=== PATIENT | male | born 1940 | race Caucasian/White ===

== ENCOUNTER 2022-04-29 08:18 | Outpatient (CLI) | payer MEDICARE, SELFPAY ==
[2022-04-29 10:32] LABS: Albumin* 4.1 g/dL (3.3-5.0); Chloride* 103 mmol/L (96-114); Potassium* 4.7 mmol/L (3.6-5.1); Sodium* 138 mmol/L (135-149)
[2022-04-29 10:34] LABS: Carbon Dioxide* 29 mmol/L (20-32); Cholesterol* 153 mg/dL (90-199); Creatinine* 0.9 mg/dL (0.5-1.5); Estimated Glomerular Filt Rate 87 ml/min
[2022-04-29 10:35] LABS: Alanine Aminotransferase* 27 U/L (4-50); Alkaline Phosphatase* 52 U/L (40-150); Aspartate Amino Transferase* 34 U/L (12-35); Bilirubin Total* 1.1 mg/dL (0.1-1.5); Blood Urea Nitrogen* 23 mg/dL (7-30); Calcium* 8.8 mg/dL (8.4-10.6); Glucose* 88 mg/dL (60-115); Total Protein* 6.9 g/dL (6.0-8.3); Triglycerides* 141 mg/dL (40-149)
[2022-04-29 10:36] LABS: HDL Cholesterol* 40 mg/dL (>=40); LDL Cholesterol Calculated 85 mg/dL (<100)
== END 2022-04-29 08:19 | disposition home or self-care (01) ==
PROVIDERS: PCP Family Medicine; Visit Provider Family Medicine
DX: E78.5 Hyperlipidemia, unspecified (principal)
CPT/HCPCS: 80053; 80061

== ENCOUNTER 2023-04-13 08:08 | Outpatient (CLI) | payer MEDICARE, SELFPAY | END 2023-04-13 08:09 | disposition home or self-care (01) | LOC: NFLDREF 04-16 20:17 | PROVIDERS: PCP Family Medicine; Referring Provider Family Medicine; Visit Provider Family Medicine | DX: E78.5 Hyperlipidemia, unspecified (principal) | CPT/HCPCS: 80053; 80061 ==

== ENCOUNTER 2023-05-06 11:31 | Emergency (ER) | payer MEDICARE, SELFPAY ==
[2023-05-06 11:42] VITALS: BP 160/83; PULSE 55; RESP 16; TEMP 36.8; O2SAT 98; BMI 26.6
--- NOTE | 2023-05-06 12:18 | ED_ITS ---
HPI - General Adult General Time Seen by Provider: 12:19 Date Seen: 05/06/23 Chief complaint: Dizziness/Vertigo Stated complaint: vomiting, possible vertigo Time Seen by Provider: 05/06/23 12:17 Source: patient Mode of arrival: wheelchair History of Present Illness HPI narrative: James is an 82-year-old male past medical history includes macular degeneration, hyperlipidemia, presents emerged department via private car in wheelchair with dizziness/vertigo. Patient states he had symptoms yesterday for short period of time, he had dinner around 8:30 p.m., when he got up he had a sensation of the room spinning, he had to sit in a recliner. Symptoms improved when he was laying still. He ended up going to bed last night, he got up to go the bathroom he had symptoms of the room spinning specially with ambulation. Symptoms seemed to resolve once he is laying. Got up this morning was ambulating to the bathroom and again he had symptoms of room spinning, he was very nauseous and vomited 3 times. ended up bringing him in. Denies any headache, chest pain or shortness of breath, patient has no history of CAD or stroke, no fevers, but he does have chronic nasal congestion. Patient was admitted about 5 years ago for similar symptoms, they thought at that time more related to heat stroke. Patient at this time has no symptoms when laying down. Denies any focal weakness or paresthesias. No other concerns at this time. Related Data Home Medications Medication Instructions Recorded Confirmed Focus PO 04/29/22 05/12/23 meclizine 25 mg tablet 25 mg PO TID PRN 05/12/23 Previous Rx's Medication Instructions Recorded rosuvastatin 5 mg tablet 5 mg PO QDAY #90 tabs 05/12/23 Allergies Allergy/AdvReac Type Severity Reaction Status Date / Time azithromycin AdvReac Mild Diarrhea, Verified 05/12/23 09:36 gas, bloating Anesthetics, Amide Allergy Unknown Uncoded 05/12/23 09:36 Anesthetics, Lacey Allergy Unknown Uncoded 05/12/23 09:36 Anesthetics, Halogenated Allergy Unknown Uncoded 05/12/23 09:36 Review of Systems Status of ROS: Reports: 10 or more systems reviewed and unremarkable except as noted in History and below [facility] Medical History 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) Surgical History History of cataract surgery ?Z98.49 - Cataract extraction status, unspecified eye (ICD-10) History of colonoscopy ?Z98.890 - Other specified postprocedural states (ICD-10) History of surgery on arm ?Z98.890 - Other specified postprocedural states (ICD-10) Social History (Updated 05/12/23 @ 14:55 by Shirley Cline ~ CT[facility]) What is your current living situation?: I presently have a place to live In the past 12 months, utilities in danger of being shut off: no In past 12 months, lack of transportation kept you from medical appts, meetings, work, or getting things needed for daily living: no In the past 12 mos, have been you worried that your food would run out before yo u had money to buy more?: never true In the past 12 mos, the food you bought just didn't last and you didn't have money to buy more?: never true Smoking Status: Never smoker How often does anyone, including family, friends and others, physically hurt you : never How often does anyone, including family, friends and others, insult or talk down to you: never How often does anyone, including family, friends and others, threaten you with harm: never How often does anyone, including family, friends and others, scream or curse at you: never Little interest or pleasure in doing things: not at all Feeling down, depressed, or hopeless: not at all Exam Narrative: Exam Narrative: General: No obvious distress laying comfortably, nontoxic in appearance HEENT: Tympanic membranes within normal limits bilaterally, oropharynx is clear moist, nares are clear, pupils equal round reactive to light, extraocular muscles intact Lungs: Clear to auscultation bilaterally Heart; normal sinus rhythm S1-S2 Muscle skeletal: +5 strength in upper and lower extremities Neuro: Alert awake and oriented x3, unable to perform Ivette-Hallpike, once patient sits up he developed symptoms, no noticeable nystagmus. Unable to evaluate gait Const: Vital Signs, click to edit/add: Vital Signs - 24 hr 05/06/23 11:42 Temperature 98.3 F Pulse Rate [Right Pulse Oximeter] 55 L Respiratory Rate 16 Blood Pressure [Ri ght Upper Arm] 160/83 H Pulse Oximetry 98 Oxygen Delivery Me thod Room Air Course Course ED Course: 12:15 PM: AIDET performed. Workup will include EKG, ED point of care troponin, TSH, CBC and CMP, will give patient meclizine 25 mg, Scopolamine patch, seems more related to a positional vertigo since patient's symptoms occur with head movement and ambulation, may consider further imaging if no improvement with his symptoms. Differential diagnosis include but not limited to CVA, BPPV, hypo or hyperthyroidism, cardiac arrhythmia, anemia, medication side effects, acute stick neuroma, ruptured tympanic membrane, otitis media, encephalopathy, temporal lobe epilepsy, electrolyte abnormalities, infection, labyrinthitis as well as all etiologies. Reevaluation(s) Time of Reevaluation #1: 14:27 Reevaluation #1: EKG showed sinus bradycardia, bpm 55, no ectopy or acute ST changes, no comparisons, per ED per. CBC showed no leukocytosis, no anemia, metabolic panel within normal limits, point of care troponin negative, patient was given the above care and his symptoms improved, was able to perform Ivette-Hallpike, which elicit no vertical or horizontal nystagmus, patient had no symptoms, he is ambulating to and from the bathroom with no symptoms, will continue to monitor, likely discharge home with prescription for meclizine. Reevaluation #2: Symptoms have improved, will plan to discharge, prescription for meclizine sent to his pharmacy, he should follow up primary care provider over the next 7-10 days reasons to return were given Vital Signs Vital signs: Initial Vital Signs Temperature 98.3 F 05/06/23 11:42 Temperature Source Temporal Artery Scan 05/06/23 11:42 Pulse Rate 55 L 05/06/23 11:42 Pulse Rhythm Regular 05/06/23 11:42 Pulse Strength 3+ Normal 05/06/23 11:42 Respiratory Rate 16 05/06/23 11:42 Blood Pressure 160/83 H 05/06/23 11:42 Blood Pressure Mean 108 H 05/06/23 11:42 Blood Pressure Position Sitting 05/06/23 11:42 Pulse Oximetry 98 05/06/23 11:42 Oxygen Delivery Method Room Air 05/06/23 11:42 Vital Signs Temperature 98.3 F 05/06/23 11:42 Pulse Rate 55 L 05/06/23 11:42 Respiratory Rate 16 05/06/23 11:42 Blood Pressure 160/83 H 05/06/23 11:42 Pulse Oximetry 98 05/06/23 11:42 Oxygen Delivery Method Room Air 05/06/23 11:42 Temperature 98.3 F 05/06/23 11:42 Pulse Rate 55 L 05/06/23 14:19 Respiratory Rate 16 05/06/23 11:42 Blood Pressure 160/83 H 05/06/23 11:42 Pulse Oximetry 94 05/06/23 14:19 Oxygen Delivery Method Room Air 05/06/23 11:42 Medical Decision Making Lab Data Labs: Lab Results 05/06/23 Range/Units 12:50 WBC 7.38 (4.50-11.00) K/uL RBC 5.14 (4.30-5.90) m/uL Hgb 15.3 (13.5-17.5) gm/dL Hct 45.5 (37.0-53.0) % MCV 89 (80-100) fL MCH 30 (26-34) pg MCHC 34 (32-36) gm/dL RDW Coeff of Sugey 12.4 (11.5-15.5) % Plt Count 177 (140-440) K/uL Neut % (Auto) 82.9 H (42.0-72.0) % Lymph % (Auto) 8.9 L (20-44) % Hopkins % (Auto) 6.6 (0.0-11.0) % Eos % (Auto) 0.9 (0.0-7.0) % Baso % (Auto) 0.3 (0.0-3.0) % Neut # (Auto) 6.10 (1.7-7.0) K/uL Lymph # (Auto) 0.70 L (0.90-2.90) K/uL Hopkins # (Auto) 0.50 (0.00-0.90) K/UL Eos # (Auto) 0.07 (0.00-0.50) K/uL Baso # (Auto) 0.02 (0.00-0.30) K/uL Abs Immat Gran (auto) 0.03 (0.00-0.30) K/uL Imm/Tot Granulo (auto) 0.4 % Sodium 134 L (135-149) mmol/L Potassium 4.2 (3.6-5.1) mmol/L Chloride 102 (96-114) mmol/L Carbon Dioxide 28 (20-32) mmol/L Anion Gap 4 L (7-15) mEq/L BUN 17 (7-30) mg/dL Creatinine 0.8 (0.5-1.5) mg/dL Estimated Creat Clear 55.08 Estimated GFR 89 ml/min Glucose 114 (60-115) mg/dL Calcium 9.2 (8.4-10.6) mg/dL Total Bilirubin 1.0 (0.1-1.5) mg/dL AST 32 (12-35) U/L ALT 27 (4-50) U/L Alkaline Phosphatase 49 (40-150) U/L Troponin I < 0.01 L (0.01-0.04) ng/mL Total Protein 7.0 (6.0-8.3) g/dL Albumin 4.0 (3.3-5.0) g/dL TSH 2.660 (0.270-4.20) uIU/mL Discharge Plan Discharge Clinical Impression: Dizziness Patient Disposition: Home, Self-Care Condition: Improved Instructions: Vertigo (ED), Dizziness (ED) Additional Instructions: To leave the scopolamine patch on, for the next 3 days, meclizine 25 mg as needed 3 times daily if dizziness return, continue to hydrate, follow up with primary care provider over the next 7-10 days. Return if worsening symptoms. Activity Level: No Restrictions Prescriptions: No Action Focus PO meclizine 25 mg tablet 25 mg PO TID PRN rosuvastatin 5 mg tablet 5 mg PO QDAY Qty: 90 3RF Follow Up/Referrals: Dustin Cruz MD [Primary Care Provider] - Stand Alone Forms: [employer] Info Instructions
[2023-05-06] MEDS: MECLIZINE HCL 25 MG TABLET PO (12:49)
[2023-05-06 12:58] LABS: Basophils Absolute Auto 0.02 K/uL (0.00-0.30); Basophils Percent Auto 0.3 % (0.0-3.0); Eosinophils Absolute Auto 0.07 K/uL (0.00-0.50); Eosinophils Percent Auto 0.9 % (0.0-7.0); Hematocrit 45.5 % (37.0-53.0); Hemoglobin* 15.3 gm/dL (13.5-17.5); Immature Granulocytes Abs Auto 0.03 K/uL (0.00-0.30); Immature Granulocytes Pct Auto 0.4 %; Lymphocytes Percent Auto 8.9 % (20-44); Mean Corpuscular HGB Conc 34 gm/dL (32-36); Mean Corpuscular Hemoglobin 30 pg (26-34); Mean Corpuscular Volume 89 fL (80-100); Monocytes Percent Auto 6.6 % (0.0-11.0); Neutrophils Percent Auto 82.9 % (42.0-72.0); Platelet Count* 177 K/uL (140-440); RDW Coefficient of Variation % 12.4 % (11.5-15.5); Red Blood Count 5.14 m/uL (4.30-5.90); White Blood Count* 7.38 K/uL (4.50-11.00)
[2023-05-06 12:59] LABS: Slide Review Reflex No
[2023-05-06 13:12] LABS: Chloride* 102 mmol/L (96-114); Potassium* 4.2 mmol/L (3.6-5.1); Sodium* 134 mmol/L (135-149)
[2023-05-06 13:14] LABS: Creatinine* 0.8 mg/dL (0.5-1.5); Est. Creatinine Clearance* 55.08; Estimated Glomerular Filt Rate 89 ml/min
[2023-05-06 13:15] LABS: Alanine Aminotransferase* 27 U/L (4-50); Alkaline Phosphatase* 49 U/L (40-150); Anion Gap 4 mEq/L (7-15); Aspartate Amino Transferase* 32 U/L (12-35); Blood Urea Nitrogen* 17 mg/dL (7-30); Calcium* 9.2 mg/dL (8.4-10.6); Carbon Dioxide* 28 mmol/L (20-32); Glucose* 114 mg/dL (60-115)
[2023-05-06 13:28] LABS: Troponin I* < 0.01 ng/mL (0.01-0.04)
[2023-05-06] MEDS: SCOPOLAMINE 1 MG/3 DAY PATCH 1 PATCH TRANSDERMA (13:52)
[2023-05-06 14:19] VITALS: PULSE 55; O2SAT 94
== END 2023-05-06 14:51 | disposition home or self-care (01) ==
PROVIDERS: Emergency Provider Student in an Organized Health Care Education/Training Program; PCP Family Medicine
DX: R42 Dizziness and giddiness (principal)
CPT/HCPCS: 36415; 80053; 84443; 84484; 85025; 93005; 99283; 99284; A9270

== ENCOUNTER 2023-09-11 21:08 | Emergency (ER) | payer MEDICARE, SELFPAY ==
[2023-09-11 21:11] VITALS: BP 176/94; PULSE 69; RESP 18; TEMP 36.2; O2SAT 97
--- NOTE | 2023-09-11 21:18 | ED.GENADULT ---
HPI - General Adult General Chief complaint: Hypertension Stated complaint: Blacked out, choked,fell, hit head, High Bp Time Seen by Provider: 09/11/23 21:17 History of Present Illness HPI narrative: not on blood thinners. blacked out, fell, hit head. happened around 1530 today. Came in this evening because his blood pressure was elevated. pt also complaining of headache. pt also complaining of left sided pain , ribcage 82-year-old man presenting to the emergency department after apparent head injury. Apparently was about 6 hours ago joking with his son and having him drink water. Was laughing and then suddenly started choking and passed out falling backwards. Son had turned around by the time return back Mr. Peña with coming to. About 5 days ago head impacted the top of his head on a Rafter indicating a scab and a superior portion of the scalp and then and then is today's head injury. Denies history of cardiac problems, arrhythmias. Neck or back pain. No other injuries were sustained. No vomiting. Concern was mildly elevated blood pressures at least 176 systolic was measured at home and that prompted the visit more today than anything. He also has some left anterior rib pain. No pleuritic pain really. Related Data Home Medications Medication Instructions Recorded Confirmed Focus PO 04/29/22 08/10/23 meclizine 25 mg tablet 25 mg PO TID PRN 05/12/23 08/10/23 Previous Rx's Medication Instructions Recorded rosuvastatin 5 mg tablet 5 mg PO QDAY #90 tabs 05/12/23 benzonatate 200 mg capsule 200 mg PO BID-TID PRN cough #14 08/10/23 caps Allergies Allergy/AdvReac Type Severity Reaction Status Date / Time azithromycin AdvReac Mild Diarrhea, Verified 08/10/23 12:21 gas, bloating Anesthetics, Amide Allergy Unknown Uncoded 08/10/23 12:21 Anesthetics, Lacey Allergy Unknown Uncoded 08/10/23 12:21 Anesthetics, Halogenated Allergy Unknown Uncoded 08/10/23 12:21 Review of Systems Status of ROS: Reports: 6 or more systems reviewed and unremarkable except as noted in History and below [facility] Medical History 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) Surgical History History of cataract surgery ?Z98.49 - Cataract extraction status, unspecified eye (ICD-10) History of surgery on arm ?Z98.890 - Other specified postprocedural states (ICD-10) History of colonoscopy ?Z98.890 - Other specified postprocedural states (ICD-10) Social History What is your current living situation?: I presently have a place to live In the past 12 months, utilities in danger of being shut off: no In past 12 months, lack of transportation kept you from medical appts, meetings, work, or getting things needed for daily living: no In the past 12 mos, have been you worried that your food would run out before you had money to buy more?: never true In the past 12 mos, the food you bought just didn't last and you didn't have money to buy more?: never true Smoking Status: Never smoker Do you use any of these nicotine containing products: None How often do you have a drink containing alcohol: never How often do you have six or more drinks on one occasion: Never AUDIT-C Alcohol total score: 0 How often does anyone, including family, friends and others, physically hurt you: never How often does anyone, including family, friends and others, insult or talk down to you: never How often does anyone, including family, friends and others, threaten you with harm: never How often does anyone, including family, friends and others, scream or curse at you: never Little interest or pleasure in doing things: not at all Feeling down, depressed, or hopeless: not at all Exam Narrative: Exam Narrative: Appears younger than stated age. Well built/muscled. Fully alert. GCS 15 Cranial nerves 2-12 intact. Pupils are equal and briskly reactive. He has nickel sized scab the superior portion of his scalp and then upper occipital to the right parietal there is mild swelling and light abrasion without active bleeding. Neck is supple nontender. He is sore to palpation of the will 3rd clavicular line anterior low chest to compression. Lungs appear to be clear. There is no stridor. Abdomen otherwise soft and nontender. Extremities are well perfused. Strong hands. No lower extremity edema. Const: Vital Signs, click to edit/add: Vital Signs - 24 hr 09/11/23 21:11 09/11/23 22:45 09/11/23 22:46 Temperature 97.2 F L Pulse Rate 59 L 55 L Pulse Rate [Right Pulse Oximeter] 69 Respiratory Rate 18 Blood Pressure 158/84 H Blood Pressure [Le ft Upper Arm] 176/94 H Pulse Oximetry 97 97 96 Oxygen Delivery Me thod Room Air 09/11/23 22:47 09/11/23 22:50 Temperature Pulse Rate 56 L 54 L Pulse Rate [Right Pulse Oximeter] Respiratory Rate Blood Pressure 137/86 Blood Pressure [Le ft Upper Arm] Pulse Oximetry 96 93 Oxygen Delivery Me thod Documenting provider has reviewed patient's vital signs: yes Course Vital Signs Vital signs: Initial Vital Signs Temperature 97.2 F L 09/11/23 21:11 Temperature Source Temporal Artery Scan 09/11/23 21:11 Pulse Rate 69 09/11/23 21:11 Pulse Rhythm Regular 09/11/23 21:11 Respiratory Rate 18 09/11/23 21:11 Blood Pressure 176/94 H 09/11/23 21:11 Blood Pressure Mean 121 H 09/11/23 21:11 Blood Pressure Position Sitting 09/11/23 21:11 Pulse Oximetry 97 09/11/23 21:11 Oxygen Delivery Method Room Air 09/11/23 21:11 Vital Signs Temperature 97.2 F L 09/11/23 21:11 Pulse Rate 69 09/11/23 21:11 Respiratory Rate 18 09/11/23 21:11 Blood Pressure 176/94 H 09/11/23 21:11 Pulse Oximetry 97 09/11/23 21:11 Oxygen Delivery Method Room Air 09/11/23 21:11 Temperature 97.2 F L 09/11/23 21:11 Pulse Rate 54 L 09/11/23 22:50 Respiratory Rate 18 09/11/23 21:11 Blood Pressure 137/86 09/11/23 22:47 Pulse Oximetry 93 09/11/23 22:50 Oxygen Delivery Method Room Air 09/11/23 21:11 Medical Decision Making MDM Narrative Medical decision making narrative: This sounds to be syncopal event related to choking as described. Generally quite healthy. Certainly could have precipitated an arrhythmia. Will need to evaluate for head injury/bleed. Check basic cardiac labs as well. Does not appear to have sustained significant injury beyond his though anterior left ribs are a little sore. Placed on manager monitoring. EKG noted as below Mr. Barger does not feel like he needs any intervention here in the emergency transportation department supervisor CT by my read looks to be absent of any acute abnormality. INDICATION: Syncope and head injury. TECHNIQUE: CT head without contrast. COMPARISON: MRI brain 03/03/2019. FINDINGS: CSF spaces: Within normal limits for age. Brain parenchyma: The parker-white differentiation is maintained. No sign of mass, hemorrhage, or midline shift. Skull base and calvarium: Mild scattered mucosal thickening in the right greater than left ethmoid and maxillary sinuses. Mastoid air cells are clear. The visualized orbits are grossly unremarkable. No skull fractures. IMPRESSION: No acute intracranial abnormality. Did also image ribs though given physical exam I think less likely to be any fracture. By my read I cannot locate a fracture INDICATION: Left low anterior rib pain after fall. TECHNIQUE: Chest and left ribs 3 views. COMPARISON: 07/23/2015. FINDINGS: Cardiovascular and mediastinum: Heart size and vasculature are normal in caliber and appearance. Mediastinum is within normal limits. Lungs and pleural spaces: Lungs are clear. No sign of infiltrate or mass. No sign of pleural effusion. No pneumothorax. Bones and soft tissues: Detailed oblique images of the left ribs demonstrate no fractures or bone lesions. IMPRESSION: Unremarkable chest and left ribs. No events on monitor here in the emergency department. Easily ambulatory from the ER. See patient discharge plan Medical Records Medical records reviewed: Yes I reviewed the patient's medical records Lab Data Lab results reviewed: Yes I reviewed the patient's lab results Labs: Lab Results 09/11/23 Range/Units 21:24 POC Troponin I 0.01 (0.01-0.04) ng/ml ECG Data Attestation: I personally reviewed and interpreted this ECG as follows: (Sinus bradycardia without acute ischemic changes. Rate of 58.) Discharge Plan Discharge Clinical Impression: Closed head injury, Syncope Patient Disposition: Home w/ Parent or Adult Condition: Stable Additional Instructions: At this time your heart looks good. Do not see any bleeding in your head nor clear rib fracture. Consider taking some ibuprofen or acetaminophen yet before bed. Stay well-hydrated. Try to get quality and regular sleep. Signs or symptoms of a concussion might be nausea or headache upon exertion which can also be an indication to back off that level of activity and reassess in a week.? Concussion can also be represented by smoldering nausea or smoldering headache, difficulty with concentration, mood lability, general somnolence, sense of persistent fog or dizziness/lightheadedness.? If these symptoms are becoming apparent and continuing beyond 7-10 days, be re-evaluated for further recommendations. Activity Level: No Restrictions Discharge Diet: Regular Prescriptions: No Action Focus PO meclizine 25 mg tablet 25 mg PO TID PRN rosuvastatin 5 mg tablet 5 mg PO QDAY Qty: 90 3RF benzonatate 200 mg capsule 200 mg PO BID-TID PRN (Reason: cough) Qty: 14 0RF Follow Up/Referrals: Dustin Cruz MD [Primary Care Provider] - Stand Alone Forms: [employer] Info Instructions
--- NOTE | 2023-09-11 21:23 | CRLHL7_ITS ---
For Patients: As a result of the Cures Act, medical imaging exams and procedure reports are released immediately into your electronic medical record. You may view this report before your referring provider. If you have questions, please contact your health care provider. INDICATION: Left low anterior rib pain after fall. TECHNIQUE: Chest and left ribs 3 views. COMPARISON: 07/23/2015. FINDINGS: Cardiovascular and mediastinum: Heart size and vasculature are normal in caliber and appearance. Mediastinum is within normal limits. Lungs and pleural spaces: Lungs are clear. No sign of infiltrate or mass. No sign of pleural effusion. No pneumothorax. Bones and soft tissues: Detailed oblique images of the left ribs demonstrate no fractures or bone lesions. IMPRESSION: Unremarkable chest and left ribs. Dictated by Elver Camacho MD @ 09/11/2023 10:31:20 PM (Electronically Signed)
--- NOTE | 2023-09-11 21:24 | CRLHL7_ITS ---
For Patients: As a result of the Century Cures Act, medical imaging exams and procedure reports are released immediately into your electronic medical record. You may view this report before your referring provider. If you have questions, please contact your health care provider. INDICATION: Syncope and head injury. TECHNIQUE: CT head without contrast. COMPARISON: MRI brain 03/03/2019. FINDINGS: CSF spaces: Within normal limits for age. Brain parenchyma: The parker-white differentiation is maintained. No sign of mass, hemorrhage, or midline shift. Skull base and calvarium: Mild scattered mucosal thickening in the right greater than left ethmoid and maxillary sinuses. Mastoid air cells are clear. The visualized orbits are grossly unremarkable. No skull fractures. IMPRESSION: No acute intracranial abnormality. Please note that all CT scans at this facility use dose modulation, iterative reconstruction, and/or weight-based dosing when appropriate to reduce radiation dose to as low as reasonably achievable. Dictated by Elver Camacho MD @ 09/11/2023 10:33:42 PM (Electronically Signed)
--- OUTSIDE RECORDS SUMMARY | 2023-09-11 21:36 | XMS_ITS | Clinical Summary ---
Author Name Unknown Organization [facility] Address [place], [place] [address] Care Team Providers Care Signal Worker Name Role Phone Dustin Cruz MD Primary Care Provider [phone] Allergies Active Allergy Reactions Criticality Noted Date Comments Lidocaine Nausea And Vomiting 04/19/2014 Unlisted Allergen (Include Detail In Comments) Nausea And Vomiting 10/25/2013 The anesthesia used for previous eye surgeries caused nausea and vomiting for days. Medications Medication Sig Dispensed Refills Start Date End Date Status prednisoLONE acetate 1% ophthalmic (ECONOPRED PLUS, PRED FORTE, OMNIPRED) suspension Place 1 drop in right eye 4 times daily. Start after 1 week once ointment is done 10 mL 2 04/10/2015 Active acetaminophen (TYLENOL) 325 mg tablet Take 2 tablets by mouth every 4 hours if needed. Maximum dose of acetaminophen is 4000 mg from all sources in 24 hours. 0 04/10/2015 Active ibuprofen (ADVIL; MOTRIN) 400 mg tablet Take 1 tablet by mouth every 6 hours if needed for Pain. Take with food. Over the counter 0 04/10/2015 Active neomycin-polymyxin- dexamethasone (MAXITROL) ophthalmic ointmentIndications :Aftercare following surgery of the sense organs, NEC Apply to right eye 4 times daily x 7 days then stop and start Prednisolone 3.5 g 0 04/10/2015 Active Active Problems Problem Noted Date Diagnosed Date Family history of colonic polyps 11/12/2010 Colon polyp 11/12/2010 Overview: Colonoscopy 10/2010 polyps repeat in 3 years Colonoscopy 11/2013 multiple polyps repeat in 3 years Colonoscopy 11/2016 multiple polyps repeat in 3 years Colonoscopy 04/2020 two polyps, repeat in 5 years Social History Tobacco Use Types Packs/Day Years Used Date Smoking Tobacco: Never Smokeless Tobacco: Never Tobacco Cessation:Counseling Given: Yes Alcohol Use Standard Drinks/Week Comments No 0 (1 standard drink = 0.6 oz pur e alcohol) Sex and Gender Information Value Date Recorded Sex Assigned at Not on file Gender Identity Not on file Sexual Orientation Not on file Obstetrics History Last Filed Vital Signs Vital Sign Reading Time Taken Comments Blood Pressure 109/65 05/09/2020 9:03 AM CDT Pulse 82 05/09/2020 9:03 AM CDT Temperature 36.5 ??C (97.7 ??F) 04/10/2015 9:32 AM CD T Respiratory Rate 16 04/10/2015 12:44 PM CDT Oxygen Saturation 100% 05/09/2020 9:03 AM CDT Inhaled Oxygen Concentration - - Weight 74.8 kg (165 lb) 04/10/2015 9:32 AM CDT Height 170.7 cm (5' 7.2) 04/10/2015 9:32 AM CDT Body Mass Index 25.69 04/10/2015 9:32 AM CDT Plan of Treatment Health Maintenance Due Date Last Done Comments COVID-19 vaccine series (#1) 06/11/1941 Tdap 1953 Depression screening for age 12+ 1954 BMI (ht and wt on same day) for age 18+ 1960 Tetanus booster 1962 Zoster (shingles) series for age 50+ (1 of 2) 12/10/18 93 Medicare Wellness for age 65+ 12/11/2007 Pneumococcal series for age 65+ (1 of 1 - PCV) 008 Influenza for age 65+ 04/23/2023 Advance Directives Latest Code Status on File Code Status Date Activated Date Inactivated Comments Full Code 04/10/2015 9:32 AM 04/10/2015 2:55 PM Code Status History Code Status Date Activated Date Inactivated Comments Full Code 04/20/2014 9:04 AM 04/20/2014 2:19 PM Full Code 10/27/2013 6:27 AM 10/27/2013 11:55 AM Care Teams Signal Worker Relationship Specialty Start Date End Date Dustin Cruz MD PCP - General Family Practice 10/24/13
[2023-09-11 21:40] LABS: Troponin, Point-of-Care* 0.01 ng/ml (0.01-0.04)
[2023-09-11 22:45] VITALS: BP 158/84; PULSE 59; O2SAT 97
--- NOTE | 2023-09-11 22:45 | ED.NURSE ---
Pt walking independently back and forth to the bathroom at this time.
[2023-09-11 22:46] VITALS: PULSE 55; O2SAT 96
[2023-09-11 22:47] VITALS: BP 137/86; PULSE 56; O2SAT 96
[2023-09-11 22:50] VITALS: PULSE 54; O2SAT 93
== END 2023-09-11 23:07 | disposition home or self-care (01) ==
PROVIDERS: Emergency Provider Family Medicine; PCP Family Medicine
DX: S09.90XA Unspecified injury of head, initial encounter (principal); R55 Syncope and collapse
CPT/HCPCS: 70450; 71101; 84484; 93005; 99284; 99285

== ENCOUNTER 2024-06-08 08:36 | Outpatient (CLI) | payer MEDICARE, SELFPAY ==
--- OUTSIDE RECORDS SUMMARY | 2024-06-11 04:26 | XMS_ITS | Clinical Summary ---
Author Organization [employer] [facility] Address [place], [place] [address] Care Team Providers Care School Business Administrator Name Role Phone Dustin Cruz MD Primary Care Provider Allergies Active Allergy Reactions Criticality Noted Date [...] then stop and start Prednisolone 3.5 g 04/10/2015 Active Active Problems Problem Noted Date Diagnosed Date Family history of colonic polyps 11/12/2010 Colon polyp 11/12/2010 Overview (05/10/2020): Colonoscopy 10/2010 polyps repeat in 3 years [...] Health Maintenance Due Date Last Done Comments Tdap 1953 Depression screening for age 12+ 1954 BMI (ht and wt on same day) for age 18+ 1960 Tetanus booster 1962 Zoster (shingles) series for age 50+ (1 of 2) 12/10/18 93 Medicare Wellness for age 65+ 12/11/2007 Pneumococcal series for age 65+ (1 of 1 - PCV) 008 RSV vaccine for adults or pr egnancy (1 - 1-dose 75+ series) 2017 COVID-19 vaccine series (2023- season) 4 Influenza for age 65+ 04/23/2024 Advance Directives * Full Code (Latest Code Status on File) Date Activated Date Inactivated Comments 04/10/2015 9:32 AM 04/10/2015 2:55 PM * Full Code Date Activated Date Inactivated Comments 04/20/2014 9:04 AM 04/20/2014 2:19 PM * Full Code Date Activated Date Inactivated Comments 10/27/2013 6:27 AM 10/27/2013 11:55 AM Care Teams School Business Administrator Relationship Specialty Start Date End Date Dustin Cruz MD PCP - General Family Practice 10/24/13
== END 2024-06-08 08:37 | disposition home or self-care (01) ==
LOC: NFLDREF 06-11 04:25
PROVIDERS: PCP Family Medicine; Referring Provider Family Medicine; Visit Provider Family Medicine
DX: E78.5 Hyperlipidemia, unspecified (principal)
CPT/HCPCS: 80053; 80061

== ENCOUNTER 2024-09-19 14:30 | Emergency (ER) | payer MEDICARE, SELFPAY ==
[2024-09-19 14:52] VITALS: BP 166/91; PULSE 91; RESP 18; TEMP 36.1; O2SAT 97; BMI 25.8
--- NOTE | 2024-09-19 15:24 | ED.GENADULT ---
HPI - General Adult General Date Seen: 09/19/24 Chief complaint: Dizziness/Vertigo Stated complaint: Dizzy, vertigo Time Seen by Provider: 09/19/24 15:17 History of Present Illness HPI narrative: 83-year-old gentleman with a past medical history of peripheral vertigo, macular degeneration, hyperlipidemia, heart murmur, osteoarthritis. Had been seen in the ER 05/06/2023 for vertigo and dizziness. Symptoms improved after meclizine, scopolamine patch. History from patient and his is that he does have intermittent episodes of vertigo several times over the past couple of years. At least once he required an overnight hospitalization for vertigo. He has been doing well for the past several months. He had a brief episode of vertigo a few weeks ago that came and went on its own. He had some leftover prescriptions from his previous ER visit but felt they were but and so did not use that. His current episode of vertigo started yesterday in the early afternoon. He began to feel little bit unsteady and dizzy as if the warm room was spinning around. He has been having trouble with vertigo ever since then. He says whenever he sits up or turns his head or tries to walk he gets very dizzy and unsteady. When he lays in bed and lay still he actually feels fine. Sometimes when he is very dizzy he has nausea and vomiting. He threw up once at home and once again after he arrived here in the ER today. He does not have any headache. No double vision. No slurred speech. No focal numbness or weakness in his arms or legs. He has been able to walk but feeling very unsteady. No falls. No known injury. No associated neck pain. He does wear hearing aids. No new change in his amount of hearing. No tinnitus. No fever or chills. He does have chronic sinus problems. He has had previous episodes of vertigo similar to this episode, but has never been seen by vertigo specialist or ENT doctor Related Data Home Medications ?Medication ?Instructions ?Recorded ?Confirmed Focus PO 04/29/22 06/19/24 coenzyme Q10 100 mg capsule 100 mg PO QDAY 11/01/23 06/19/24 (CoQ-10) Previous Rx's ?Medication ?Instructions ?Recorded rosuvastatin 5 mg tablet 5 mg PO QDAY #90 tabs 10/28/24 meclizine 50 mg tablet (Antivert) 50 mg PO BID PRN #10 tabs 09/19/24 Allergies Allergy/AdvReac Type Severity Reaction Status Date / Time azithromycin AdvReac Mild Diarrhea, Verified 06/19/24 08:31 gas, bloating Anesthetics, Amide Allergy Unknown Uncoded 06/19/24 08:31 Anesthetics, Lacey Allergy Unknown Uncoded 06/19/24 08:31 Anesthetics, Halogenated Allergy Unknown Uncoded 06/19/24 08:31 [facility] 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, [facility]) What is your current living situation?: I presently have a place to live Problems where you live: no known problems In the past 12 months, utilities in danger of being shut off: no In past 12 months, lack of transportation kept you from medical appts, meetings, work, or getting things needed for daily living: no In the past 12 mos, have been you worried that your food would run out before you had money to buy more?: never true In the past 12 mos, the food you bought just didn't last and you didn't have money to buy more?: never true Smoking Status: Never smoker Do you use any of these nicotine containing products: None How often do you have a drink containing alcohol: never How often do you have six or more drinks on one occasion: Never AUDIT-C Alcohol total score: 0 Non-prescribed substance use: denies use How often does anyone, including family, friends and others, physically hurt you: never How often does anyone, including family, friends and others, insult or talk down to you: never How often does anyone, including family, friends and others, threaten you with harm: never How often does anyone, including family, friends and others, scream or curse at you: never Exam Narrative: Exam Narrative: Constitutional: Appears well-developed and well-nourished. Alert. Conversant. Non toxic. HENT: Head: Atraumatic. Nose: Nose normal. Mouth/Throat: Oral mucosa is clear and moist. no trismus. Pharynx normal. Tonsils symmetric. No tonsillar enlargement, erythema, or exudate. Eyes: Conjunctivae normal. EOM normal. Pupils equal, round, and reactive to light. No scleral icterus. When I have him sit up for eye exam we do produce some vertigo and he has horizontal nystagmus. I do not see any vertical or rotatory nystagmus. He wearing bilateral hearing aids. Ears and mastoids normal. Neck: Normal range of motion. Neck supple. No tracheal deviation present. Cardiovascular: Normal rate, regular rhythm. No gallop. No friction rub. No murmur heard. Symmetric radial artery pulses Pulmonary/Chest: Effort normal. No stridor. No respiratory distress. No wheezes. No rales. No rhonchi . No tenderness. Abdominal: Soft. Bowel sounds normal. No distension. No mass. No tenderness. No rebound. No guarding. Musculoskeletal: RUE: Normal range of motion. No tenderness. No deformity LUE: Normal range of motion. No tenderness. No deformity RLE: Normal range of motion. No edema. No tenderness. No deformity LLE: Normal range of motion. No edema. No tenderness. No deformity Lymph: No cervical adenopathy. Neurological: Mental status normal. Attention normal. Alert and oriented x3. GCS 15. Memory normal. Speech fluent. Cognition normal. Cranial Nerves intact II-XII except I did not formally test gag or visual acuity. EOMI. Palate elevates symmetrically and tongue protrudes in the midline. Strength: 5/5 trapezius on the right and left 5/5 deltoid on the right and left 5/5 biceps on the right and left 5/5 triceps on the right and left 5/5 barback on the right and left 5/5 thumb opposition on the right and left 5/5 finger abduction on the right and left 5/5 hip flexors (L3) on the right and left 5/5 quadriceps (L4) on the right and left 5/5 tibialis anterior on the right and left 5/5 EHL (L5) on the right and left 5/5 gastrocnemius (S1) on the right and left 5/5 hamstring on the right and left Sensation intact to light touch in both upper extremities (C4-T1) Sensation intact to light touch in Both lower extremities (L4-S1). Finger to nose and coordination normal. Gait normal. Skin: Skin is warm and dry. No rash noted. No pallor. Normal capillary refill. Psychiatric: Normal mood. Mildly anxious. notes that he has been anxious about his taxes for the past couple of days. Const: Vital Signs, click to edit/add: Vital Signs - 24 hr 09/19/24 14:52 09/19/24 16:00 09/19/24 18:00 Temperature 97 F L Pulse Rate [Right Pulse Oximeter] 91 60 60 Respiratory Rate 18 16 16 Blood Pressure [Ri ght Upper Arm] 166/91 H 139/91 H 147/81 H Pulse Oximetry 97 96 Oxygen Delivery Me thod Room Air Room Air Room Air 09/19/24 20:05 Temperature Pulse Rate [Right Pulse Oximeter] 82 Respiratory Rate 16 Blood Pressure [Ri ght Upper Arm] 146/87 H Pulse Oximetry Oxygen Delivery Me thod Course Course ED Course: Patient presented and was room to ER room 8. Initial history and physical exam form. Received Zofran, meclizine, scopolamine patch. Only marginal improvement in his dizziness. Reevaluation(s) Reevaluation #1: Recheck-IV ordered. Patient received IV Valium and fluids, IV Zofran. Laboratory workup undertaken just to rule out other causes of dizziness. No evidence for anemia. Electrolytes normal. EKG normal without arrhythmia or ischemia. He is not having any chest pain. I had ordered a screening troponin as well. However there were problems with the lab so this was not performed in a timely manner. The patient was symptom medically improved at that point. I do not feel it was reasonable to make the patient wait in the ER any further with a clear case of vertigo, and improve symptoms. Reevaluation #2: Recheck-feeling better after meds. He is able to sit up at the bedside than stand the bedside. He is able to walk under his own power in the hallway down to the bathroom. I walked with him to make sure he was steady and he did well. He got himself out of the bathroom and walked back to his room on his own, without asking for help. He still somewhat vertiginous with walking but is steady on his feet. Overall, using a process of shared decision-making, we feel that he is safe to discharge home. His will be able to watch him. They have a generally flat house with only 1 step coming in from the garage. They also live with his adult son who could assist him with transfers if needed. They will return to the ER right away if he has uncontrolled vertigo or other problems. Vital Signs Vital signs: Initial Vital Signs Temperature 97 F L 09/19/24 14:52 Temperature Source Temporal Artery Scan 09/19/24 14:52 Pulse Rate 91 09/19/24 14:52 Pulse Rhythm Regular 09/19/24 14:52 Pulse Strength 3+ Normal 09/19/24 14:52 Respiratory Rate 18 09/19/24 14:52 Blood Pressure 166/91 H 09/19/24 14:52 Blood Pressure Mean 116 H 09/19/24 14:52 Blood Pressure Position Sitting 09/19/24 14:52 Pulse Oximetry 97 09/19/24 14:52 Oxygen Delivery Method Room Air 09/19/24 14:52 Vital Signs Temperature 97 F L 09/19/24 14:52 Pulse Rate 91 09/19/24 14:52 Respiratory Rate 18 09/19/24 14:52 Blood Pressure 166/91 H 09/19/24 14:52 Pulse Oximetry 97 09/19/24 14:52 Oxygen Delivery Method Room Air 09/19/24 14:52 Temperature 97 F L 09/19/24 14:52 Pulse Rate 82 09/19/24 20:05 Respiratory Rate 16 09/19/24 20:05 Blood Pressure 146/87 H 09/19/24 20:05 Pulse Oximetry 96 09/19/24 18:00 Oxygen Delivery Method Room Air 09/19/24 18:00 Medications Administered Medications: Discontinued Medications Generic Name Dose Route Start Last Admin Trade Name Freq PRN Reason Stop Dose Admin Diazepam 5 mg 09/19/24 17:30 09/19/24 18:37 Diazepam 5 Mg/Ml Inj IV 09/19/24 17:31 5 mg ONCE ONE Administration Meclizine HCl 25 mg 09/19/24 15:46 09/19/24 16:00 Meclizine Hcl 25 Mg Tablet PO 09/19/24 15:47 25 mg ONCE ONE Administration Ondansetron HCl 4 mg 09/19/24 15:46 09/19/24 16:00 Ondansetron Odt 4 Mg Tab PO 09/19/24 15:47 4 mg ONCE ONE Administration Scopolamine 1 patch 09/19/24 16:00 09/19/24 16:13 Scopolamine 1 Mg/3 Day Patch TRANSDERMA 1 patch Q72H ABBEY Administration Medical Decision Making MDM Narrative Medical decision making narrative: This patient presents for evaluation of dizziness c/w vertigo. The differential diagnosis of vertigo is broad and includes common etiologies such as menieres disease, labyrinthitis, benign positional vertigo, otitis media, etc. More serious etiologies considered include central etiologies such as tumor, intracerebral bleed, dissection, ischemic cerebral vascular accident. The history, physical exam including detailed neurologic exam, and workup in the emergency room suggests a benign cause of vertigo today. Patient feels improved after interventions noted above. Further outpatient management is indicated with vertigo medications. Clinical history and exam is reassuring. No indication for advanced imaging at this point (CT/MRI) as there are no definite signs of a central and concerning etiology for the vertigo. [facility] prescriptions for Ativan (Valium not available) and Zofran. E prescription for meclizine sent to his pharmacy. Meclizine not available in [facility]. Vertigo precautions given for home. Would recommend outpatient follow-up with ENT for further evaluation given that he has had at least 3 episodes of vertigo similar to this over the past couple of years. Lab Data Labs: Lab Results 09/19/24 Range/Units 18:30 WBC 11.72 H (4.50-11.00) K/uL RBC 5.30 (4.30-5.90) m/uL Hgb 16.1 (13.5-17.5) gm/dL Hct 46.6 (37.0-53.0) % MCV 88 (80-100) fL MCH 30 (26-34) pg MCHC 35 (32-36) gm/dL RDW Coeff of Sugey 12.8 (11.5-15.5) % Plt Count 185 (140-440) K/uL Neut % (Auto) 84.7 H (42.0-72.0) % Lymph % (Auto) 8.0 L (20-44) % Kern % (Auto) 6.6 (0.0-11.0) % Eos % (Auto) 0.3 (0.0-7.0) % Baso % (Auto) 0.2 (0.0-3.0) % Neut # (Auto) 9.90 H (1.7-7.0) K/uL Lymph # (Auto) 0.90 (0.90-2.90) K/uL Kern # (Auto) 0.80 (0.00-0.90) K/UL Eos # (Auto) 0.00 (0.00-0.50) K/uL Baso # (Auto) 0.00 (0.00-0.30) K/uL Abs Immat Gran (auto) 0.00 (0.00-0.30) K/uL Imm/Tot Granulo (auto) 0.2 % Sodium 137 (135-149) mmol/L Potassium 3.6 (3.6-5.1) mmol/L Chloride 105 (96-114) mmol/L Carbon Dioxide 25 (20-32) mmol/L Anion Gap 7 (7-15) mEq/L BUN 15 (7-30) mg/dL Creatinine 0.7 (0.5-1.5) mg/dL Estimated Creat Clear 54.17 Estimated GFR 93 ml/min Glucose 108 (60-115) mg/dL Calcium 9.1 (8.4-10.6) mg/dL Discharge Plan Discharge Clinical Impression: Vertigo Patient Disposition: Home, Self-Care Condition: Stable Instructions: Vertigo (DC) Additional Instructions: Please follow-up with your regular doctor next week for recheck. You can discuss your urinary problems with your primary at the time of recheck For your vertigo, please call the [facility] E[facility] clinic to arrange an ER follow-up recheck appointment. Call [phone] Be careful with the medications for nausea and vertigo. They can cause dizziness, drowsiness so you should not drive or operate dangerous machinery while taking these medications. Used the nausea medication and vertigo medication as needed. You can take off the scopolamine patch after Thursday, or sooner if you get better If you have uncontrolled dizziness or nausea, uncontrolled vomiting, or develop other symptoms such as new headache, double vision, slurred speech, numbness or weakness in your arms or legs, please come back to the ER right away to be rechecked Prescriptions: New meclizine [Antivert] 50 mg tablet 50 mg PO BID PRNQty: 10 0RF No Action Focus PO rosuvastatin 5 mg tablet 5 mg PO QDAY Qty: 90 3RF coenzyme Q10 [CoQ-10] 100 mg capsule 100 mg PO QDAY Follow Up/Referrals: Dustin Cruz MD [Primary Care Provider] - Stand Alone Forms: [employer] Info Instructions
[2024-09-19 16:00] VITALS: BP 139/91; PULSE 60; RESP 16
[2024-09-19] MEDS: ONDANSETRON ODT 4 MG TAB PO (16:00)
[2024-09-19] MEDS: MECLIZINE HCL 25 MG TABLET PO (16:00)
[2024-09-19] MEDS: SCOPOLAMINE 1 MG/3 DAY PATCH 1 PATCH TRANSDERMA (16:13)
[2024-09-19 18:00] VITALS: BP 147/81; PULSE 60; RESP 16; O2SAT 96
[2024-09-19] MEDS: diazePAM 5 MG/ML inj IV (18:37)
[2024-09-19 18:40] LABS: Basophils Percent Auto 0.2 % (0.0-3.0); Eosinophils Percent Auto 0.3 % (0.0-7.0); Hematocrit* 46.6 % (37.0-53.0); Hemoglobin* 16.1 gm/dL (13.5-17.5); Immature Granulocytes Pct Auto 0.2 %; Mean Corpuscular HGB Conc 35 gm/dL (32-36); Mean Corpuscular Hemoglobin 30 pg (26-34); Mean Corpuscular Volume 88 fL (80-100); Monocytes Percent Auto 6.6 % (0.0-11.0); Neutrophils Percent Auto 84.7 % (42.0-72.0); Platelet Count* 185 K/uL (140-440); RDW Coefficient of Variation % 12.8 % (11.5-15.5); White Blood Count* 11.72 K/uL (4.50-11.00)
[2024-09-19 18:42] LABS: Slide Review Reflex No
[2024-09-19 18:54] LABS: Chloride* 105 mmol/L (96-114); Potassium* 3.6 mmol/L (3.6-5.1); Sodium* 137 mmol/L (135-149)
[2024-09-19 18:57] LABS: Anion Gap 7 mEq/L (7-15); Blood Urea Nitrogen* 15 mg/dL (7-30); Calcium* 9.1 mg/dL (8.4-10.6); Carbon Dioxide* 25 mmol/L (20-32); Creatinine* 0.7 mg/dL (0.5-1.5); Est. Creatinine Clearance* 54.17; Estimated Glomerular Filt Rate 93 ml/min; Glucose* 108 mg/dL (60-115)
[2024-09-19 20:05] VITALS: BP 146/87; PULSE 82; RESP 16
--- OUTSIDE RECORDS SUMMARY | 2024-09-20 14:24 | XMS_ITS | Clinical Summary ---
Author Organization [facility] [facility] Address [place], [place] [address] Care Team Providers Care Bryologist Name Role Phone Dustin Cruz MD Primary Care Provider [phone] Allergies Active Allergy Reactions Criticality Noted Date Comments Lidocaine Nausea And Vomiting 04/19/2014 Unlisted Allergen (Include Detail In Comments) Nausea And Vomiting 10/25/2013 The anesthesia used for previous eye surgeries caused nausea and vomiting for days. Medications prednisoLONE acetate 1% ophthalmic (ECONOPRED PLUS, PRED FORTE, OMNIPRED) suspension Place 1 drop in right eye 4 times daily. Start after 1 week once ointment is done 10 mL 2 04/10/2015 12:18 PM CDT 5 Active acetaminophen (TYLENOL) 325 mg tablet Take 2 tablets by mouth every 4 hours if needed. Maximum dose of acetaminophen is 4000 mg from all sources in 24 hours. 0 5 Active ibuprofen (ADVIL; MOTRIN) 400 mg tablet Take 1 tablet by mouth every 6 hours if needed for Pain. Take with food. 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 Gender Identity Not on file Sexual Orientation Not on file Obstetrics History Last Filed Vital Signs Vital Sign Reading Time Taken Comments Blood Pressure 109/65 05/09/2020 9:03 AM CDT Pulse 82 05/09/2020 9:03 AM CDT Temperature 36.5 C (97.7 F) 04/10/2015 9:32 AM CDT Respiratory Rate 16 04/10/2015 12:44 PM CDT [...] for age 18+ 1960 Tetanus booster 1962 Pneumococcal series for age 50+ (1 of 1 - PCV) 993 Zoster (shingles) series for age 50+ (1 of 2) 12/10/18 93 Medicare Wellness for age 65+ 12/11/2007 RSV vaccine for adults or pr egnancy (1 - 1-dose 75+ series) 2017 COVID-19 vaccine series ( - 2023-25 season) Influenza for age 65+ 04/23/2024 Insurance MEDICARE PART B HB ONLY BLUE CROSS MEDICARE ADVANTAGE MR Advance Directives * Full Code (Latest Code Status on File) Date Activated Date Inactivated Comments 04/10/2015 9:32 AM 04/10/2015 2:55 PM * Full Code Date Activated Date Inactivated Comments 04/20/2014 9:04 AM 04/20/2014 2:19 PM * Full Code Date Activated Date Inactivated Comments 10/27/2013 6:27 AM 10/27/2013 11:55 AM Care Teams Bryologist Relationship Specialty Start Date End Date Dustin Cruz MD PCP - General Family Practice 10/24/13
== END 2024-09-19 20:06 | disposition home or self-care (01) ==
PROVIDERS: Emergency Provider Emergency Medicine; PCP Family Medicine
DX: R42 Dizziness and giddiness (principal)
CPT/HCPCS: 36415; 80048; 84484; 85025; 93005; 96372; 99283; 99284; A9270; J3360

== ENCOUNTER 2025-08-01 10:04 | Outpatient (CLI) | payer MEDICARE, SELFPAY ==
[2025-08-01 12:57] LABS: PSA Screen* 0.80 ng/mL (0.10-4.00)
== END 2025-08-01 10:05 | disposition home or self-care (01) ==
LOC: NFLDREF 10:04
PROVIDERS: PCP Family Medicine; Visit Provider Family Medicine
DX: N40.0 Benign prostatic hyperplasia without lower urinary tract symptoms (principal); E78.5 Hyperlipidemia, unspecified
CPT/HCPCS: 80053; 80061; G0103